=== PATIENT | male | born 1985 | race Caucasian/White ===

== ENCOUNTER 2022-03-08 08:03 | Outpatient (CLI) | payer BC ==
[2022-03-08 14:20] LABS: SARS-CoV-2 PCR by NAA Not Detected (NotDetected)
== END 2022-03-08 08:04 | disposition home or self-care (01) ==
LOC: LABBT 08:03
PROVIDERS: ATTEND Specialist
DX: J38.00 Paralysis of vocal cords and larynx, unspecified (principal); R49.0 Dysphonia; Z86.16 Personal history of COVID-19; Z20.822 Contact with and (suspected) exposure to COVID-19
CPT/HCPCS: U0003; U0005

== ENCOUNTER 2022-03-09 07:52 | Day surgery (SDC) | payer BC ==
[2022-03-07 15:01] VITALS: BMI 31.6
[2022-03-09] MEDS ORDERED: EPINEPHrine 1 MG/ML AMP ONE (09:37)
[2022-03-09] MEDS ORDERED: fentaNYL Citrate/PF 100 MCG/2 ML SYRINGE ONE (09:47)
[2022-03-09] MEDS ORDERED: SUGAMMADEX SODIUM 200 MG/2 ML VIAL ONE (09:47)
[2022-03-09] MEDS ORDERED: Propofol 1,000 MG/100 ML VIAL IV ONE (09:52)
[2022-03-09] MEDS ORDERED: Midazolam HCl 2 mg/2 ml Vial ONE (09:58)
[2022-03-09] MEDS ORDERED: Ondansetron PF 4 MG/2 ML Vial ONE (10:05)
[2022-03-09] MEDS ORDERED: Lidocaine 1% PF 5 ML VIAL ONE (10:05)
[2022-03-09] MEDS ORDERED: Rocuronium Bromide 10 MG/ML (10ML VIAL) ONE (10:05)
[2022-03-09] MEDS ORDERED: Dexamethasone 20 MG/5 ML VIAL ONE (10:05)
[2022-03-09] MEDS ORDERED: PROPOFOL 200 MG/20 ML VIAL ONE (10:05)
== END 2022-03-09 11:50 | disposition home or self-care (01) ==
LOC: SDC 07:52
PROVIDERS: ATTEND Specialist
PROC: 3E0F8GC Introduction of Other Therapeutic Substance into Respiratory Tract, Via Natural or Artificial Opening Endoscopic (ICD-10-PCS; principal; 2022-03-09)
DX: J38.01 Paralysis of vocal cords and larynx, unilateral (principal); E66.9 Obesity, unspecified; Z68.31 Body mass index [BMI] 31.0-31.9, adult; Z86.16 Personal history of COVID-19; Z88.5 Allergy status to narcotic agent
CPT/HCPCS: C1776; J0171; J1100; J2250; J2405; J2704

== ENCOUNTER 2025-06-24 08:50 | Outpatient (CLI) | payer BC | END 2025-06-24 08:51 | disposition home or self-care (01) | LOC: SCSRAD 08:50 | PROVIDERS: ATTEND Family Medicine | DX: M25.572 Pain in left ankle and joints of left foot (principal); M19.072 Primary osteoarthritis, left ankle and foot; M77.32 Calcaneal spur, left foot ==